=== PATIENT | female | born 1945 | race Caucasian/White ===

== ENCOUNTER 2024-01-10 14:45 | Emergency (ER) | payer MEDICARE, OTHER, SELFPAY ==
[2024-01-10] VITALS (7 sets, daily range): BP systolic 127–170; BP diastolic 58–74; PULSE 60–71; RESP 18; TEMP 36.5–36.6; O2SAT 96–98; BMI 26.0
--- NOTE | 2024-01-10 16:00 | ED.SKABFB ---
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 She denies any sort of injury or irritation. She has not had any sort of fever. Denies any painful frequent urination. But she does have significant labial swelling on that left side. Related Data Previous Rx's Medication Instructions Recorded doxycycline hyclate 100 mg capsule 100 mg PO BID #20 caps 01/10/24 Allergies Allergy/AdvReac Type Severity Reaction Status Date / Time bee venom protein (honey bee) Allergy Severe Anaphylaxis Verified 01/10/24 15:42 pollen extracts Allergy Intermediate ITCHING Verified 01/10/24 15:42 sulfamethoxazole Allergy Intermediate Rash Verified 01/10/24 15:42 [From Sulfamethoxazole-Trimethoprim] trimethoprim Allergy Intermediate Rash Verified 01/10/24 15:42 [From Sulfamethoxazole-Trimethoprim] bacitracin Allergy Mild Rash Verified 01/10/24 15:42 lidocaine [From Xylocaine] Allergy Mild Rash Verified 01/10/24 15:45 Sulfa (Sulfonamide Allergy Unknown Verified 01/10/24 15:42 Antibiotics) adhesive tape AdvReac Mild Redness of Verified 01/10/24 15:42 Skin Patient History Social History Smoking Status: Never smoker Smoking Status: Never smoker alcohol intake frequency: holidays/special occasions only Substance Use Type: does not use Exam Initial Vital Signs Initial Vital Signs: Vital Signs Pulse Rate 65 01/10/24 15:06 Blood Pressure 170/74 H 01/10/24 15:06 Pulse Oximetry 98 01/10/24 15:06 GENERAL: Alert pleasant 78-year-old female and in [no acute] distress. HEENT: Head atraumatic,EOMI, pupils reactive, face symmetric, [moist] mucous membranes CARDIOVASCULAR: Regular rate and rhythm without murmurs, rubs or gallops. RESPIRATORY: Breath sounds equal bilaterally, no wheezes rales or rhonchi. ABDOMEN: Soft, nontender. Normoactive bowel sounds all 4 quadrants. No guarding or rebound. PELIVC: Left labial fluctuation tender to touch EXTREMITIES: Normal range of motion, no clubbing or edema. Neurovascularly intact NEUROLOGICAL: Alert and oriented x4.Normal gait and speech. SKIN: Chronic left leg wound no significant drainage some mild surrounding erythema patient states that it comes and goes it does not seem any worse than normal Procedures Abscess I/D I&D #1: Site: other (Vaginal) Side (if applicable): left Local Anesthetic: lidocaine 1% and with epi Amount of anesthesia used (mL): 3 Technique: incised with #11 blade Amount of fluid expressed (mL): 2 Irrigation: No Packing used?: none Course Orders Ordered: Discontinued Medications Lidocaine/Epinephrine (Lidocaine 1% W/Epi) 1 ml SUBCUT NOW ONE Stop: 01/10/24 16:19 Last Admin: 01/10/24 16:26 Dose: 1 ml Documented By: KRISTEN Vital Signs Vital signs: Vital Signs - 8 hr 01/10/24 15:08 Temperature 97.7 F Pulse Rate 71 Respiratory Rate 18 Blood Pressure 170/74 H Pulse Oximetry 98 Oxygen Delivery Method Room Air MDM - Skin/Abscess/Foreign Bdy MDM Narrative Medical decision making narrative: Patient is 78-year-old female has left labial abscess. It was I&D small amount of drainage. It was sent for culture. She has a chronic ongoing left leg wound which not appear any worse than normal. She has afebrile with stable vitals. Given prescription for doxycycline. I think unlikely to be her Pseudomonas. It is more likely to be MRSA or strep. Discharge Plan Departure Patient Disposition: Home Clinical Impression: Abscess of skin or subcutaneous tissue Instructions: DI for Skin Abscess Activity Restrictions/Additional Instructions: *You have been diagnosed with skin abscess *What to do: At this time warm compresses to help bring infection out. If you should have increased bleeding apply ice pack and pressure. Culture will take 2-3 days to come back we have call you if you should need new antibiotic *Continue to take medications as directed Doxycycline 100 mg twice a day for 10 days *Follow up with your primary care provider in 2-3 days or call [phone] *Return to ER if you should have increased redness swelling pain or any new, worsening or concerning symptoms Prescriptions: New doxycycline hyclate 100 mg capsule 100 mg PO BID Qty: 20 0RF Referrals: Miscellaneous,Doctor, [Primary Care Provider] - Stand Alone Forms: Patient Portal/API
[2024-01-10] MEDS: LIDOCAINE 1% W/EPI 1 ML SUBCUT (16:26)
== END 2024-01-10 17:36 | disposition home or self-care (01) ==
PROVIDERS: Emergency Provider Emergency Medicine
DX: N76.4 Abscess of vulva (principal)
CPT/HCPCS: 56405; 87070; 87075; 87077; 87147; 87186; 87205; 99281; 99283